=== PATIENT | female | born 1970 | race Two or more races ===

== ENCOUNTER 2024-08-20 17:55 | Emergency (ER) | payer OTHER ==
[~2024-08-20] VITALS: Ht 157.5 cm; Wt 84.8 kg
[2024-08-20 18:05] VITALS: BP 130/80; O2SAT 100
[2024-08-20] MEDS ORDERED: STRATTERA60 MG PO (18:05)
[2024-08-20] MEDS ORDERED: [UNRECOGNIZED DRUG - OTHER] (18:05)
[2024-08-20] MEDS ORDERED: ESCITALOPRA5 MG/5 ML (18:06)
[2024-08-20] MEDS ORDERED: KETOROLAC TROMETHAMINE 60 MG VIAL IM ONE ×2 (20:39→20:45)
[2024-08-20] MEDS ORDERED: ORPHENADRINE CITRATE 100 MG TABLET PO ONE (20:45)
[2024-08-21] MEDS ORDERED: IBU600 MG PO (00:23)
[2024-08-21] MEDS ORDERED: NORFLEX100MG PO (00:23)
[2024-08-21] MEDS ORDERED: ORPHENADRINE CITRATE 100 MG TABLET PO ONE (00:30)
== END 2024-08-21 00:36 | disposition home or self-care (01) ==
LOC: ER 17:57
DX: M54.2 Cervicalgia (principal); V43.62XA Car passenger injured in collision with other type car in traffic accident, initial encounter; Y93.89 Activity, other specified; Y92.89 Other specified places as the place of occurrence of the external cause